=== PATIENT | female | born 1955 | race Caucasian/White ===

== ENCOUNTER 2018-03-14 15:33 | Inpatient (IN) | payer MEDICARE ==
[~2018-03-14] VITALS: Ht 157.5 cm; Wt 74.5 kg
[2018-03-14] MEDS ORDERED: ALBUTEROL/IPRATROPIUM 2.5MG/0.5MG, 3 ML NPPB SCH ×2 (16:00→20:00)
[2018-03-14] MEDS ORDERED: ALBUTEROL/IPRATROPIUM 2.5MG/0.5MG, 3 ML ONE (16:18)
[2018-03-14] MEDS ORDERED: ALBUTEROL 0.5%, 20ML ONE (16:26)
[2018-03-14 16:33] LABS: BASOPHILS # (AUTO) 0.07 x10^3/uL (0-0.1); BASOPHILS % (AUTO) 1 % (0-1); EOSINOPHILS # (AUTO) 1.61 x10^3/uL (0-0.4); EOSINOPHILS % (AUTO) 19 % (1-7); LYMPHOCYTES # (AUTO) 1.84 x10^3/uL (1-3.4); LYMPHOCYTES % (AUTO) 21 % (22-44); MD NO; MEAN CORPUSCULAR HEMOGLOBIN 30.5 pg (27.0-34.8); MEAN CORPUSCULAR HGB CONC 33.9 g/dL (32.4-35.8); MEAN CORPUSCULAR VOLUME 89.9 fL (80-100); MEAN PLATELET VOLUME 8.4 fL (7.4-10.4); MONOCYTES % (AUTO) 8 % (2-9); NEUTROPHILS # (AUTO) 4.45 x10^3/uL (1.8-6.8); NEUTROPHILS % (AUTO) 51 % (42-75); PLATELET COUNT 261 x10^3/uL (130-400); RED BLOOD COUNT 4.89 x10^6/uL (3.82-5.3); RED CELL DISTRIBUTION WIDTH 14.2 % (9.6-15.2)
[2018-03-14 16:45] LABS: ALBUMIN 3.6 g/dL (3.4-5.0); ANION GAP 6 mmol/L (5-15); CALCIUM 8.6 mg/dL (8.5-10.1); CHLORIDE 113 mmol/L (98-107); CREATININE 1.02 mg/dL (0.55-1.02)
[2018-03-14] MEDS ORDERED: ALBUTEROL 0.5%, 20ML NPPBCONT ONE (17:00)
[2018-03-14] MEDS ORDERED: BUDE10.22 INH (17:22)
[2018-03-14] MEDS ORDERED: LORA10TA37 PO (17:22)
[2018-03-14] MEDS ORDERED: ALBU18HF IH (17:22)
[2018-03-14] MEDS ORDERED: MAGNESIUM SULFATE PMX 2GM/50ML 50 ML IVPB ONE (17:30)
[2018-03-14] MEDS ORDERED: SODIUM CHLORIDE 0.9% 1,000ML IVBOLUS ONE (17:30)
[2018-03-14] MEDS ORDERED: methylPREDNISolone SOD SUCC 125 MG/2 ML ONE (18:02)
[2018-03-14] MEDS ORDERED: LIDOCAINE GEL 2%, 5ML ONE (18:27)
[2018-03-14] MEDS ORDERED: PHENYLEPHRINE NASAL 0.5%, 15ML SPRAY ONE (18:27)
[2018-03-14] MEDS ORDERED: LIDOCAINE 4% TOPICAL SOLUTION 50 ML ONE (18:27)
[2018-03-14] MEDS ORDERED: methylPREDNISolone SOD SUCC 125 MG/2 ML IVP ONE (18:30)
[2018-03-14] MEDS ORDERED: morphine SULFATE 10 MG/ML, 1ML IVPush PRN (19:30)
[2018-03-14] MEDS ORDERED: methylPREDNISolone SOD SUCC 125 MG/2 ML IVPush SCH ×2 (19:30→22:00)
[2018-03-14] MEDS ORDERED: DOCUSATE 100 MG CAPSULE PO PRN (19:30)
[2018-03-14] MEDS ORDERED: OXYcodone IR 5MG TABLET PO PRN (19:30)
[2018-03-14] MEDS ORDERED: DOXYCYCLINE 100 MG in DEXTROSE 5% 250 ML IV SCH (19:30)
[2018-03-14] MEDS ORDERED: POLYETHYLENE GLYCOL 17 GM PACKET PO PRN (19:30)
[2018-03-14] MEDS ORDERED: ONDANSETRON ODT 4 MG PO PRN (19:30)
[2018-03-14] MEDS ORDERED: ACETAMINOPHEN 325 MG TABLET PO PRN (19:30)
[2018-03-14] MEDS ORDERED: BISACODYL 10 MG SUPP PR PRN (19:30)
[2018-03-14] MEDS ORDERED: hydrALAzine 20 MG/ML, 1ML IVPush PRN (19:30)
[2018-03-14] MEDS ORDERED: ONDANSETRON 2MG/ML, 2ML IVPush PRN (19:30)
[2018-03-14] MEDS ORDERED: PROMETHAZINE 25 MG/ML, 1ML IM PRN (19:30)
[2018-03-14] MEDS ORDERED: ENOXAPARIN 40 MG/0.4 ML SQ SCH (19:30)
[2018-03-14 19:36] VITALS: BP 143/69
[2018-03-14] MEDS ORDERED: ALBUTEROL/IPRATROPIUM 2.5MG/0.5MG, 3 ML NPPB PRN (20:00)
[2018-03-14] MEDS ORDERED: GUAIFENESIN 200 MG TABLET PO SCH (20:00)
[2018-03-14] MEDS: SODIUM CHLORIDE 0.9% 1,000 ML IV SCH (20:20)
[2018-03-14] MEDS: methylPREDNISolone SOD SUCC 125 MG/2 ML IVPush SCH (20:20)
[2018-03-14] MEDS: HEPARIN 5,000 UNITS/ML, 1ML SQ SCH (20:21)
[2018-03-14] MEDS ORDERED: FAMOTIDINE 20 MG/2 ML IVPush SCH (21:00)
[2018-03-14] MEDS: ALBUTEROL/IPRATROPIUM 2.5MG/0.5MG, 3 ML NPPB SCH (22:52)
[2018-03-14] MEDS ORDERED: ALBUTEROL SULFATE 2.5 MG/3 ML NPPB SCH (23:00)
[2018-03-14 23:09] LABS: MICROSCOPIC NOT IND
[2018-03-14 23:13] LABS: CULTURE INDICATED? NO
[2018-03-15] MEDS: methylPREDNISolone SOD SUCC 125 MG/2 ML IVPush SCH ×4 (01:40→23:56)
[2018-03-15] MEDS: HEPARIN 5,000 UNITS/ML, 1ML SQ SCH ×3 (03:31→21:00)
[2018-03-15] MEDS: ALBUTEROL/IPRATROPIUM 2.5MG/0.5MG, 3 ML NPPB SCH ×7 (03:35→23:30)
[2018-03-15 04:00] VITALS: BP 119/57
[2018-03-15 05:11] LABS: BASOPHILS # (AUTO) 0.02 x10^3/uL (0-0.1); BASOPHILS % (AUTO) 0 % (0-1); EOSINOPHILS # (AUTO) 0.01 x10^3/uL (0-0.4); EOSINOPHILS % (AUTO) 0 % (1-7); LYMPHOCYTES # (AUTO) 0.42 x10^3/uL (1-3.4); LYMPHOCYTES % (AUTO) 7 % (22-44); MD NO; MEAN CORPUSCULAR HEMOGLOBIN 30.6 pg (27.0-34.8); MEAN CORPUSCULAR VOLUME 90.1 fL (80-100); MEAN PLATELET VOLUME 9.1 fL (7.4-10.4); MONOCYTES # (AUTO) 0.04 x10^3/uL (0.2-0.8); MONOCYTES % (AUTO) 1 % (2-9); NEUTROPHILS # (AUTO) 5.72 x10^3/uL (1.8-6.8); NEUTROPHILS % (AUTO) 92 % (42-75); PLATELET COUNT 221 x10^3/uL (130-400); RED BLOOD COUNT 4.25 x10^6/uL (3.82-5.3); RED CELL DISTRIBUTION WIDTH 13.5 % (9.6-15.2)
[2018-03-15 05:13] LABS: CALCIUM 7.7 mg/dL (8.5-10.1); CHLORIDE 111 mmol/L (98-107)
[2018-03-15 05:20] LABS: ALANINE AMINOTRANSFERASE 24 U/L (12-78); ALBUMIN 3.1 g/dL (3.4-5.0); ALKALINE PHOSPHATASE 72 U/L (45-117); ANION GAP 14 mmol/L (5-15); BILIRUBIN,TOTAL 0.3 mg/dL (0.2-1.0); CHOL/HDL RATIO 3.6; CHOLESTEROL, TOTAL 240 mg/dL (140-239); CREATININE 1.42 mg/dL (0.55-1.02); HDL CHOL % 28 % (28-40); HDL CHOLESTEROL (DIRECT) 66 mg/dL (40-60); LDL CHOLESTEROL,CALCULATED 151 mg/dL (54-169); LDL/HDL RATIO 2.3 (0.5-3.0); TOTAL PROTEIN 6.1 g/dL (6.4-8.2); TRIGLYCERIDES 115 mg/dL (50-200); VLDL CHOLESTEROL 23 mg/dL (0-25)
[2018-03-15 06:09] LABS: FREE T4 (FREE THYROXINE) 0.88 ng/dL (0.76-1.46); THYROID STIMULATING HORMONE 0.712 mIU/L (0.358-3.740)
[2018-03-15] MEDS: SODIUM CHLORIDE 0.9% 1,000 ML IV SCH (08:00)
[2018-03-15] MEDS: FLUTICASONE/VILANTEROL 200-25MCG/INH INH SCH ×2 (09:00→12:59)
[2018-03-15] MEDS: AZITHROMYCIN 500 MG TABLET PO SCH (09:50)
[2018-03-15] MEDS: LORATADINE 10 MG TABLET PO SCH (09:50)
[2018-03-15 11:30] VITALS: BP 119/62
[2018-03-15 11:47] VITALS: BP 117/90
[2018-03-15] MEDS ORDERED: ALUMINUM/MAG/SIMETHICONE 30 ML UDC PO PRN (13:00)
[2018-03-15 14:50] VITALS: BP 118/70
[2018-03-15 18:52] VITALS: BP 126/75
[2018-03-16 02:10] VITALS: BP 128/71
[2018-03-16] MEDS: ALBUTEROL/IPRATROPIUM 2.5MG/0.5MG, 3 ML NPPB SCH ×6 (03:00→22:00)
[2018-03-16] MEDS: HEPARIN 5,000 UNITS/ML, 1ML SQ SCH ×3 (06:03→21:00)
[2018-03-16] MEDS: methylPREDNISolone SOD SUCC 125 MG/2 ML IVPush SCH ×3 (06:03→17:56)
[2018-03-16 07:02] VITALS: BP 111/70
[2018-03-16] MEDS: LORATADINE 10 MG TABLET PO SCH (08:27)
[2018-03-16] MEDS: AZITHROMYCIN 500 MG TABLET PO SCH (08:27)
[2018-03-16] MEDS: FLUTICASONE/VILANTEROL 200-25MCG/INH INH SCH (08:28)
[2018-03-16 09:11] LABS: ANION GAP 10 mmol/L (5-15); CALCIUM 8.3 mg/dL (8.5-10.1); CHLORIDE 110 mmol/L (98-107); CREATININE 1.01 mg/dL (0.55-1.02)
[2018-03-16 09:15] LABS: MEAN CORPUSCULAR HEMOGLOBIN 30.1 pg (27.0-34.8); MEAN CORPUSCULAR HGB CONC 33.4 g/dL (32.4-35.8); MEAN CORPUSCULAR VOLUME 90.1 fL (80-100); MEAN PLATELET VOLUME 8.9 fL (7.4-10.4); PLATELET COUNT 238 x10^3/uL (130-400); RED BLOOD COUNT 4.24 x10^6/uL (3.82-5.3)
[2018-03-16 09:33] LABS: BASOPHILS # (AUTO) 0.02 x10^3/uL (0-0.1); BASOPHILS % (AUTO) 0 % (0-1); EOSINOPHILS # (AUTO) 0.04 x10^3/uL (0-0.4); EOSINOPHILS % (AUTO) 0 % (1-7); LYMPHOCYTES # (AUTO) 0.39 x10^3/uL (1-3.4); LYMPHOCYTES % (AUTO) 3 % (22-44); MONOCYTES # (AUTO) 0.25 x10^3/uL (0.2-0.8); MONOCYTES % (AUTO) 2 % (2-9); NEUTROPHILS # (AUTO) 12.83 x10^3/uL (1.8-6.8); NEUTROPHILS % (AUTO) 95 % (42-75)
[2018-03-16 09:34] LABS: MD SCAN
[2018-03-16] MEDS: SODIUM BICARBONATE 4.0%, 5ML NPPB SCH ×3 (11:45→21:00)
[2018-03-16] MEDS: BENZONATATE 100 MG CAPSULE PO SCH ×3 (11:51→21:03)
[2018-03-16 12:37] VITALS: BP 135/76
[2018-03-16 19:04] VITALS: BP 125/83
[2018-03-17] MEDS: methylPREDNISolone SOD SUCC 125 MG/2 ML IVPush SCH ×4 (00:37→18:18)
[2018-03-17 02:44] VITALS: BP 129/77
[2018-03-17] MEDS: HEPARIN 5,000 UNITS/ML, 1ML SQ SCH ×3 (06:04→21:00)
[2018-03-17 07:08] VITALS: BP 127/89
[2018-03-17] MEDS: ALBUTEROL/IPRATROPIUM 2.5MG/0.5MG, 3 ML NPPB SCH ×4 (07:11→23:13)
[2018-03-17] MEDS: SODIUM BICARBONATE 4.0%, 5ML NPPB SCH ×4 (07:13→23:13)
[2018-03-17 08:48] VITALS: BP 123/86
[2018-03-17] MEDS: FLUTICASONE/VILANTEROL 200-25MCG/INH INH SCH (09:00)
[2018-03-17] MEDS ORDERED: MIDAZOLAM 1 MG/ML, 5ML ONE (09:32)
[2018-03-17] MEDS ORDERED: FENTANYL PF 100 MCG/2ML ONE (09:32)
[2018-03-17 11:04] VITALS: BP 122/82
[2018-03-17] MEDS: LORATADINE 10 MG TABLET PO SCH (12:14)
[2018-03-17] MEDS: AZITHROMYCIN 500 MG TABLET PO SCH (12:14)
[2018-03-17] MEDS: BENZONATATE 100 MG CAPSULE PO SCH ×3 (12:14→21:29)
[2018-03-17 12:30] VITALS: BP 136/89
[2018-03-17 19:27] VITALS: BP 168/79
[2018-03-18] MEDS: methylPREDNISolone SOD SUCC 125 MG/2 ML IVPush SCH ×3 (00:04→11:29)
[2018-03-18 02:05] VITALS: BP 114/73
[2018-03-18] MEDS: HEPARIN 5,000 UNITS/ML, 1ML SQ SCH ×2 (05:00→13:00)
[2018-03-18] MEDS: SODIUM BICARBONATE 4.0%, 5ML NPPB SCH ×3 (06:20→13:50)
[2018-03-18] MEDS: ALBUTEROL/IPRATROPIUM 2.5MG/0.5MG, 3 ML NPPB SCH ×3 (06:20→13:50)
[2018-03-18 06:45] VITALS: BP 122/71
[2018-03-18] MEDS: LORATADINE 10 MG TABLET PO SCH (08:23)
[2018-03-18] MEDS: BENZONATATE 100 MG CAPSULE PO SCH ×2 (08:23→16:00)
[2018-03-18] MEDS: AZITHROMYCIN 500 MG TABLET PO SCH (08:23)
[2018-03-18] MEDS: FLUTICASONE/VILANTEROL 200-25MCG/INH INH SCH (08:24)
[2018-03-18 09:26] LABS: ALANINE AMINOTRANSFERASE 29 U/L (12-78); ALBUMIN 3.3 g/dL (3.4-5.0); ANION GAP 10 mmol/L (5-15); CALCIUM 8.9 mg/dL (8.5-10.1); CHLORIDE 105 mmol/L (98-107); CHOLESTEROL, TOTAL 308 mg/dL (140-239); CREATININE 1.02 mg/dL (0.55-1.02)
[2018-03-18 09:28] LABS: ALKALINE PHOSPHATASE 95 U/L (45-117); BILIRUBIN,TOTAL 0.2 mg/dL (0.2-1.0); CHOL/HDL RATIO 3.5; HDL CHOL % 29 % (28-40); HDL CHOLESTEROL (DIRECT) 89 mg/dL (40-60); LDL CHOLESTEROL,CALCULATED 184 mg/dL (54-169); LDL/HDL RATIO 2.1 (0.5-3.0); MD YES; MEAN CORPUSCULAR HEMOGLOBIN 30.4 pg (27.0-34.8); MEAN CORPUSCULAR HGB CONC 34.1 g/dL (32.4-35.8); MEAN CORPUSCULAR VOLUME 89.3 fL (80-100); MEAN PLATELET VOLUME 8.8 fL (7.4-10.4); PLATELET COUNT 247 x10^3/uL (130-400); RED BLOOD COUNT 4.77 x10^6/uL (3.82-5.3); TOTAL PROTEIN 6.4 g/dL (6.4-8.2); TRIGLYCERIDES 177 mg/dL (50-200); VLDL CHOLESTEROL 35 mg/dL (0-25)
[2018-03-18 09:45] LABS: <PLATELET ESTIMATE> ADEQUATE; <PLT MORPHOLOGY> NORMAL PLT MORPH; <RBC MORPHOLOGY> NORMAL; BAND#(MANUAL) 0.32 x10^3/uL; BANDS%(MANUAL) 3 % (0-7); LYMPH#(MANUAL) 0.64 x10^3/uL (1-3.4); LYMPHS% (MANUAL) 6 % (22-44); MONOS#(MANUAL) 0.53 x10^3/uL (0.3-2.7); MONOS% (MANUAL) 5 % (2-9); SEG#(MANUAL) 9.12 x10^3/uL (1.8-6.8); SEGS% (MANUAL) 86 % (42-75)
[2018-03-18 10:08] LABS: HEMOGLOBIN A1C 6.9 % (4.2-6.3)
[2018-03-18 13:28] VITALS: BP 139/83
[2018-03-18] MEDS ORDERED: PRED10TA PO (16:18)
== END 2018-03-18 18:11 | disposition home or self-care (01) | DRG 166 ==
LOC: ED 17:12 → EDIP 17:17 → CCU 19:19 → 3NE 03-15 11:14
PROVIDERS: ADMIT Hospitalist; ATTEND Hospitalist
PROC: 0BC68ZZ Extirpation of Matter from Right Lower Lobe Bronchus, Via Natural or Artificial Opening Endoscopic (ICD-10-PCS; 2018-03-17)
PROC: 0B9F8ZX Drainage of Right Lower Lung Lobe, Via Natural or Artificial Opening Endoscopic, Diagnostic (ICD-10-PCS; principal; 2018-03-17 10:00)
DX: T17.590A Other foreign object in bronchus causing asphyxiation, initial encounter (principal); J96.01 Acute respiratory failure with hypoxia; J45.52 Severe persistent asthma with status asthmaticus; X58.XXXA Exposure to other specified factors, initial encounter; M06.9 Rheumatoid arthritis, unspecified; M41.9 Scoliosis, unspecified; G89.29 Other chronic pain; Z90.710 Acquired absence of both cervix and uterus; Z90.49 Acquired absence of other specified parts of digestive tract; Z88.2 Allergy status to sulfonamides; Z88.1 Allergy status to other antibiotic agents; Z79.899 Other long term (current) drug therapy; Z87.442 Personal history of urinary calculi; Z87.891 Personal history of nicotine dependence; Y93.89 Activity, other specified; Y92.89 Other specified places as the place of occurrence of the external cause
CPT/HCPCS: 31624; 36415; 36600; 70360; 71045; 80048; 80053; 80061; 81003; 82040; 82803; 83036; 83735; 84439; 84443; 85025; 87070; 87077; 87081; 87186; 87205; 93005; 93306; 94640; 96374; 96375; 99152; 99153; 99291; G0378; J1644; J2250; J3010; J7620; J2930; J3475; J7030; J7512; S0028

== ENCOUNTER 2018-06-21 16:45 | Emergency (ER) | payer MEDICARE ==
[~2018-06-21] VITALS: Ht 160 cm; Wt 70.0 kg
[~2018-06-21 16:45] MED LIST: ALBU18HF IH; BUDE10.22 INH; LORA10TA37 PO; PRED10TA PO
[2018-06-21 17:24] LABS: MEAN CORPUSCULAR HEMOGLOBIN 30.3 pg (27.0-34.8); MEAN CORPUSCULAR HGB CONC 33.4 g/dL (32.4-35.8); MEAN CORPUSCULAR VOLUME 90.6 fL (80-100); MEAN PLATELET VOLUME 8.3 fL (7.4-10.4); PLATELET COUNT 296 x10^3/uL (130-400); RED CELL DISTRIBUTION WIDTH 13.1 % (9.6-15.2)
[2018-06-21] MEDS ORDERED: SODIUM CHLORIDE FLUSH 10ML SYR IVF ONE (17:30)
[2018-06-21] MEDS ORDERED: SODIUM CHLORIDE 0.9% 1,000ML IVBOLUS ONE (17:30)
[2018-06-21 17:33] LABS: ALANINE AMINOTRANSFERASE 23 U/L (12-78); ALBUMIN 3.6 g/dL (3.4-5.0); ANION GAP 8 mmol/L (5-15); CALCIUM 9.5 mg/dL (8.5-10.1); CHLORIDE 108 mmol/L (98-107); CREATININE 1.05 mg/dL (0.55-1.02)
[2018-06-21 17:42] LABS: BASOPHILS # (AUTO) 0.11 x10^3/uL (0-0.1); BASOPHILS % (AUTO) 1 % (0-1); EOSINOPHILS # (AUTO) 1.76 x10^3/uL (0-0.4); EOSINOPHILS % (AUTO) 17 % (1-7); LYMPHOCYTES # (AUTO) 1.71 x10^3/uL (1-3.4); LYMPHOCYTES % (AUTO) 17 % (22-44); MD SCAN; MONOCYTES # (AUTO) 0.55 x10^3/uL (0.2-0.8); MONOCYTES % (AUTO) 5 % (2-9); NEUTROPHILS # (AUTO) 6.12 x10^3/uL (1.8-6.8); NEUTROPHILS % (AUTO) 60 % (42-75)
[2018-06-21 17:43] LABS: ALKALINE PHOSPHATASE 94 U/L (45-117); BILIRUBIN,TOTAL 0.3 mg/dL (0.2-1.0); TOTAL PROTEIN 7.1 g/dL (6.4-8.2)
[2018-06-21 18:27] LABS: TROPONIN I < 0.015 ng/mL (0.000-0.045)
[2018-06-21] MEDS ORDERED: SODIUM CHLORIDE 0.9%, 500ML IVBOLUS ONE (18:30)
[2018-06-21] MEDS ORDERED: ONDANSETRON 2MG/ML, 2ML ONE (18:41)
[2018-06-21 18:45] VITALS: BP 135/76
[2018-06-21 18:55] LABS: MICROSCOPIC NOT IND
[2018-06-21 18:58] LABS: CULTURE INDICATED? NO
[2018-06-21] MEDS ORDERED: ONDANSETRON 2MG/ML, 2ML IVPush ONE (19:00)
[2018-06-22] MEDS ORDERED: TRAM50TA2 PO (15:19)
== END 2018-06-21 19:54 | disposition home or self-care (01) ==
LOC: ED 17:08
DX: E86.0 Dehydration (principal); R05 Cough; J45.909 Unspecified asthma, uncomplicated; M41.9 Scoliosis, unspecified; Z90.49 Acquired absence of other specified parts of digestive tract; Z90.710 Acquired absence of both cervix and uterus; Z87.891 Personal history of nicotine dependence
CPT/HCPCS: 36415; 71045; 80053; 81003; 83735; 84443; 84484; 85025; 93005; 96361; 96374; 99284; J2405; J7030; J7040

== ENCOUNTER 2018-06-22 13:20 | Observation (INO) | payer MEDICARE ==
[~2018-06-22] VITALS: Ht 157.5 cm; Wt 74.9 kg
[2018-06-22] MEDS ORDERED: MORPHINE SULFATE 4 MG/ML, 1ML ONE (13:55)
[2018-06-22] MEDS ORDERED: ONDANSETRON 2MG/ML, 2ML ONE (13:55)
[2018-06-22] MEDS ORDERED: SODIUM CHLORIDE FLUSH 10ML SYR IVF ONE (14:00)
[2018-06-22] MEDS ORDERED: MORPHINE SULFATE 4 MG/ML, 1ML IVPush PRN (14:00)
[2018-06-22] MEDS ORDERED: ONDANSETRON 2MG/ML, 2ML IVPush ONE (14:00)
[2018-06-22 14:26] LABS: ALBUMIN 3.2 g/dL (3.4-5.0); ANION GAP 8 mmol/L (5-15); CALCIUM 8.9 mg/dL (8.5-10.1); CHLORIDE 113 mmol/L (98-107)
[2018-06-22 14:27] LABS: CREATININE 0.85 mg/dL (0.55-1.02)
[2018-06-22] MEDS ORDERED: METOCLOPRAMIDE 5 MG/ML, 2ML IVPush ONE (14:30)
[2018-06-22] MEDS ORDERED: SODIUM CHLORIDE 0.9% 1,000ML IVBOLUS ONE (14:30)
[2018-06-22] MEDS ORDERED: DIPHENHYDRAMINE 50 MG/ML, 1ML IVPush ONE (14:30)
[2018-06-22 14:34] LABS: BASOPHILS # (AUTO) 0.05 x10^3/uL (0-0.1); BASOPHILS % (AUTO) 1 % (0-1); EOSINOPHILS # (AUTO) 1.61 x10^3/uL (0-0.4); EOSINOPHILS % (AUTO) 24 % (1-7); LYMPHOCYTES # (AUTO) 1.79 x10^3/uL (1-3.4); LYMPHOCYTES % (AUTO) 26 % (22-44); MD NO; MEAN CORPUSCULAR HEMOGLOBIN 29.8 pg (27.0-34.8); MEAN CORPUSCULAR HGB CONC 33.5 g/dL (32.4-35.8); MEAN CORPUSCULAR VOLUME 89.1 fL (80-100); MEAN PLATELET VOLUME 8.2 fL (7.4-10.4); MONOCYTES # (AUTO) 0.47 x10^3/uL (0.2-0.8); MONOCYTES % (AUTO) 7 % (2-9); NEUTROPHILS # (AUTO) 2.92 x10^3/uL (1.8-6.8); NEUTROPHILS % (AUTO) 43 % (42-75); PLATELET COUNT 273 x10^3/uL (130-400); RED BLOOD COUNT 4.82 x10^6/uL (3.82-5.3); RED CELL DISTRIBUTION WIDTH 12.8 % (9.6-15.2)
[2018-06-22] MEDS ORDERED: METOCLOPRAMIDE 5 MG/ML, 2ML ONE (14:39)
[2018-06-22] MEDS ORDERED: DIPHENHYDRAMINE 50 MG/ML, 1ML ONE (14:39)
[2018-06-22] MEDS ORDERED: TRAM50TA2 PO (15:19)
[2018-06-22] MEDS ORDERED: DEXAMETHASONE 4 MG/ML, 1ML ONE (16:58)
[2018-06-22] MEDS ORDERED: HYDROmorphone 2 MG/ML, 1ML ONE (16:59)
[2018-06-22] MEDS ORDERED: HYDROmorphone 1 MG/ML, 1ML IV ONE (17:00)
[2018-06-22] MEDS ORDERED: DEXAMETHASONE 4 MG/ML, 1ML IVPush ONE (17:00)
[2018-06-22] MEDS ORDERED: MIDAZOLAM 1 MG/ML, 2ML ONE (17:18)
[2018-06-22] MEDS ORDERED: LIDOCAINE-MPF 1%, 5ML ONE ×2 (17:22→17:52)
[2018-06-22] MEDS ORDERED: MIDAZOLAM 1 MG/ML, 2ML IVPush ONE (17:30)
[2018-06-22] MEDS: MIDAZOLAM MC SCH (17:30)
[2018-06-22 19:14] LABS: GLUCOSE, CSF 58 mg/dL (40-80); TOTAL PROTEIN,CSF 61 mg/dL (15-45)
[2018-06-22] MEDS ORDERED: SUMATRIPTAN 25 MG TABLET PO PRN (20:00)
[2018-06-22] MEDS ORDERED: POLYETHYLENE GLYCOL 17 GM PACKET PO PRN (20:00)
[2018-06-22] MEDS ORDERED: ONDANSETRON ODT 4 MG PO PRN (20:00)
[2018-06-22] MEDS ORDERED: BISACODYL 10 MG SUPP PR PRN (20:00)
[2018-06-22] MEDS: SODIUM CHLORIDE 0.45% 1,000 ML IV SCH (22:14)
[2018-06-22] MEDS ORDERED: ALBUTEROL SULFATE 2.5 MG/3 ML ONE (22:39)
[2018-06-22] MEDS ORDERED: ALBUTEROL SULFATE 2.5 MG/3 ML NPPB PRN (23:30)
[2018-06-23 01:51] VITALS: BP 109/68
[2018-06-23 04:34] LABS: BASOPHILS # (AUTO) 0.01 x10^3/uL (0-0.1); BASOPHILS % (AUTO) 0 % (0-1); EOSINOPHILS % (AUTO) 0 % (1-7); LYMPHOCYTES % (AUTO) 11 % (22-44); MD NO; MEAN CORPUSCULAR HGB CONC 33.7 g/dL (32.4-35.8); MEAN PLATELET VOLUME 8.4 fL (7.4-10.4); MONOCYTES # (AUTO) 0.07 x10^3/uL (0.2-0.8); MONOCYTES % (AUTO) 1 % (2-9); NEUTROPHILS # (AUTO) 5.04 x10^3/uL (1.8-6.8); NEUTROPHILS % (AUTO) 88 % (42-75); PLATELET COUNT 269 x10^3/uL (130-400); RED BLOOD COUNT 4.67 x10^6/uL (3.82-5.3); RED CELL DISTRIBUTION WIDTH 12.5 % (9.6-15.2)
[2018-06-23 04:47] LABS: ANION GAP 6 mmol/L (5-15); CALCIUM 8.3 mg/dL (8.5-10.1); CHLORIDE 109 mmol/L (98-107)
[2018-06-23 04:52] LABS: ALANINE AMINOTRANSFERASE 27 U/L (12-78); ALKALINE PHOSPHATASE 73 U/L (45-117); BILIRUBIN,TOTAL 0.2 mg/dL (0.2-1.0); CREATININE 0.93 mg/dL (0.55-1.02)
[2018-06-23 07:30] VITALS: BP 94/59
[2018-06-23] MEDS: MIDAZOLAM MC SCH (07:54)
[2018-06-23] MEDS ORDERED: DIPHENHYDRAMINE 25 MG CAPSULE ONE (07:57)
[2018-06-23] MEDS ORDERED: DIPHENHYDRAMINE 25 MG CAPSULE PO ONE (08:00)
[2018-06-23] MEDS: SODIUM CHLORIDE 0.45% 1,000 ML IV SCH ×2 (08:04→20:22)
[2018-06-23] MEDS ORDERED: GADOBUTROL 7.5 MMOL/7.5 ML PFS ONE (08:51)
[2018-06-23] MEDS ORDERED: LORATADINE 10 MG TABLET PO SCH (09:00)
[2018-06-23] MEDS: BUDESONIDE 0.5 MG/2 ML INHA NPPB SCH ×2 (09:00→19:30)
[2018-06-23] MEDS: SENNA/DOCUSATE TABLET PO SCH (09:00)
[2018-06-23 20:16] VITALS: BP 119/74
[2018-06-24 03:39] VITALS: BP 98/64
[2018-06-24] MEDS: SODIUM CHLORIDE 0.45% 1,000 ML IV SCH (06:31)
[2018-06-24 07:30] VITALS: BP 138/76
[2018-06-24] MEDS: BUDESONIDE 0.5 MG/2 ML INHA NPPB SCH (07:44)
[2018-06-24] MEDS: SENNA/DOCUSATE TABLET PO SCH (08:43)
[2018-06-24] MEDS ORDERED: LORATADINE 10 MG TABLET PO SCH (09:00)
[2018-06-24] MEDS ORDERED: CYCL5TAB PO (10:27)
[2018-06-24] MEDS ORDERED: ERGO1TAB PO (10:27)
[2018-06-24] MEDS ORDERED: VALA1000 PO (10:27)
[2018-06-24] MEDS ORDERED: DIPHENHYDRAMINE 50 MG/ML, 1ML IVPush ONE (11:30)
== END 2018-06-24 13:15 | disposition home or self-care (01) ==
LOC: ED 15:39 → INTOOBSV 17:45 → EDIP 17:45 → 3NW 19:12 → DCLOUNGE 06-24 13:01
PROVIDERS: ADMIT Family Medicine; ATTEND Family Medicine
DX: R51 Headache (principal); J45.909 Unspecified asthma, uncomplicated; M06.9 Rheumatoid arthritis, unspecified; M41.9 Scoliosis, unspecified; R00.0 Tachycardia, unspecified; E87.1 Hypo-osmolality and hyponatremia; Z80.0 Family history of malignant neoplasm of digestive organs; Z87.891 Personal history of nicotine dependence; Z90.710 Acquired absence of both cervix and uterus
CPT/HCPCS: 36415; 62270; 70450; 70553; 80048; 80053; 82040; 82945; 83605; 84157; 85025; 87040; 87070; 87205; 87252; 89051; 94640; 96374; 96375; 96376; 99284; A9585; G0378; J1100; J1170; J1200; J2405; J2765; J7030; J7613; J7626; Q0162; Q0163; 99285

== ENCOUNTER 2018-10-14 20:22 | Observation (INO) | payer MEDICARE ==
[~2018-10-14] VITALS: Ht 157.5 cm; Wt 75.6 kg
[~2018-10-14 20:22] MED LIST changes: +CYCL5TAB PO; +ERGO1TAB PO; +TRAM50TA2 PO; +VALA1000 PO
[2018-10-14] MEDS ORDERED: ALBUTEROL/IPRATROPIUM 2.5MG/0.5MG, 3 ML NPPB ONE (21:00)
--- NOTE | 2018-10-14 21:10 | NUR ---
CONTINUOUS IMPROVEMENT COORDINATOR: PT WALKED BACK FROM LOBBY TO ROOM AT THIS TIME.
--- NOTE | 2018-10-14 21:19 | NUR ---
First contact w/ pt. Presents c/o hx of asthma w/ visit to urgent care today and given 125 mg solu-medrol im and 2 duoneb tx for acute sob. Pt has moderate expiratory wheezes and "coughing fits" intermittently in the room that bring the resting hr from 108 to 120-130 range, then back down after pt stops coughing. Pt sat 98% RA, but put on 2L NC for pt comfort. Pt bp elevated. MD aware. Monitoring applied. VSS. Call light within reach. Spouse at bedside.
[2018-10-14] MEDS ORDERED: MAGNESIUM SULFATE PMX 2GM/50ML 50 ML IV ONE (21:30)
[2018-10-14] MEDS ORDERED: SODIUM CHLORIDE FLUSH 10ML SYR IVF ONE (21:30)
[2018-10-14] MEDS ORDERED: ALBUTEROL 0.5%, 20ML NPPB SCH (21:30)
[2018-10-14] MEDS ORDERED: AZITHROMYCIN 500 MG in SODIUM CHLORIDE 0.9% 250 ML IVPB ONE (21:30)
[2018-10-14] MEDS ORDERED: MAGNESIUM SULFATE PMX 2GM/50ML 50 ML ONE (21:35)
[2018-10-14] MEDS ORDERED: ALBUTEROL/IPRATROPIUM 2.5MG/0.5MG, 3 ML ONE ×2 (21:36→21:38)
--- NOTE | 2018-10-14 22:02 | NUR ---
Awaiting blood cultures for abx admin.
--- NOTE | 2018-10-14 22:03 | NUR ---
This RN called Raulito in rx. Raulito states ok to run zithromax and magnesium through same IV.
[2018-10-14 22:25] LABS: BASOPHILS # (AUTO) 0.05 x10^3/uL (0-0.1); BASOPHILS % (AUTO) 1 % (0-1); EOSINOPHILS # (AUTO) 0.38 x10^3/uL (0-0.4); EOSINOPHILS % (AUTO) 5 % (1-7); LYMPHOCYTES # (AUTO) 0.59 x10^3/uL (1-3.4); LYMPHOCYTES % (AUTO) 7 % (22-44); MD NO; MEAN CORPUSCULAR HEMOGLOBIN 29.3 pg (27.0-34.8); MEAN CORPUSCULAR HGB CONC 33.5 g/dL (32.4-35.8); MEAN CORPUSCULAR VOLUME 87.4 fL (80-100); MEAN PLATELET VOLUME 8.8 fL (7.4-10.4); MONOCYTES % (AUTO) 1 % (2-9); NEUTROPHILS # (AUTO) 7.29 x10^3/uL (1.8-6.8); NEUTROPHILS % (AUTO) 87 % (42-75); PLATELET COUNT 274 x10^3/uL (130-400); RED BLOOD COUNT 4.92 x10^6/uL (3.82-5.3); RED CELL DISTRIBUTION WIDTH 14.7 % (9.6-15.2)
[2018-10-14 22:26] LABS: RAPID INFLUENZA A Negative (Negative); RAPID INFLUENZA B Negative (Negative)
[2018-10-14 22:34] LABS: ALBUMIN 3.8 g/dL (3.4-5.0); ANION GAP 6 mmol/L (5-15); CALCIUM 9.2 mg/dL (8.5-10.1); CHLORIDE 111 mmol/L (98-107); CREATININE 1.13 mg/dL (0.55-1.02)
[2018-10-14 22:38] LABS: TROPONIN I < 0.015 ng/mL (0.000-0.045)
--- NOTE | 2018-10-14 22:45 | NUR ---
Iv's infusing appropriately. Pt wob improving and states she is feeling much better. Call light within reach. Family at bedside.
--- NOTE | 2018-10-15 00:09 | NUR ---
Pt maintaining O2 sats above 90% on RA. aware. Awaiting adm order. No immediate needs from pt or family. Call light within reach.
[2018-10-15] MEDS ORDERED: BENZONATATE 100 MG CAPSULE ONE (00:28)
[2018-10-15] MEDS ORDERED: BENZONATATE 100 MG CAPSULE PO ONE (00:30)
[2018-10-15 01:04] VITALS: BP 119/71
[2018-10-15] MEDS ORDERED: BUDE180A INH (01:23)
[2018-10-15] MEDS ORDERED: FLUT16SP NAS (01:25)
[2018-10-15] MEDS ORDERED: LEVO50TA PO (01:26)
[2018-10-15] MEDS ORDERED: ALBUTEROL/IPRATROPIUM 2.5MG/0.5MG, 3 ML HHN PRN (01:30)
[2018-10-15] MEDS ORDERED: hydrALAzine 20 MG/ML, 1ML IVPush PRN (01:30)
[2018-10-15] MEDS: ALBUTEROL SULFATE 2.5 MG/3 ML NPPB SCH ×6 (05:02→22:57)
[2018-10-15] MEDS: LEVOTHYROXINE 50 MCG TABLET PO SCH (05:13)
[2018-10-15] MEDS ORDERED: ALBUTEROL 0.5%, 20ML NPPB SCH (06:00)
[2018-10-15] MEDS: BUDESONIDE 0.5 MG/2 ML INHA NPPB SCH ×2 (07:40→19:23)
[2018-10-15 08:51] VITALS: BP 109/69
[2018-10-15] MEDS ORDERED: LORATADINE 10 MG TABLET PO SCH (09:00)
[2018-10-15] MEDS ORDERED: LORATADINE 10 MG TABLET ONE (10:18)
[2018-10-15] MEDS: methylPREDNISolone SOD SUCC 40 MG/ML IV SCH ×3 (10:30→21:57)
[2018-10-15] MEDS: LORATADINE 10 MG TABLET PO SCH (10:34)
[2018-10-15 14:29] VITALS: BP 100/56
[2018-10-15 21:00] VITALS: BP 103/56
[2018-10-15] MEDS ORDERED: methylPREDNISolone SOD SUCC 125 MG/2 ML ONE (21:30)
[2018-10-15] MEDS: AZITHROMYCIN 500 MG in SODIUM CHLORIDE 0.9% 250 ML IV SCH (21:44)
[2018-10-16] MEDS: AZITHROMYCIN 500 MG in SODIUM CHLORIDE 0.9% 250 ML IV SCH (02:27)
[2018-10-16] MEDS: methylPREDNISolone SOD SUCC 40 MG/ML IV SCH ×2 (02:27→10:15)
[2018-10-16 02:30] VITALS: BP 122/67
[2018-10-16 05:42] LABS: ANION GAP 7 mmol/L (5-15); CALCIUM 8.8 mg/dL (8.5-10.1); CHLORIDE 113 mmol/L (98-107); CREATININE 1.04 mg/dL (0.55-1.02)
[2018-10-16] MEDS: LEVOTHYROXINE 50 MCG TABLET PO SCH (06:47)
[2018-10-16 07:28] LABS: BASOPHILS % (AUTO) 0 % (0-1); EOSINOPHILS % (AUTO) 0 % (1-7); LYMPHOCYTES # (AUTO) 0.51 x10^3/uL (1-3.4); LYMPHOCYTES % (AUTO) 5 % (22-44); MD SCAN; MEAN CORPUSCULAR HEMOGLOBIN 29.2 pg (27.0-34.8); MEAN CORPUSCULAR HGB CONC 32.9 g/dL (32.4-35.8); MEAN CORPUSCULAR VOLUME 88.7 fL (80-100); MEAN PLATELET VOLUME 8.9 fL (7.4-10.4); MONOCYTES # (AUTO) 0.38 x10^3/uL (0.2-0.8); MONOCYTES % (AUTO) 4 % (2-9); NEUTROPHILS # (AUTO) 10.23 x10^3/uL (1.8-6.8); NEUTROPHILS % (AUTO) 92 % (42-75); PLATELET COUNT 256 x10^3/uL (130-400); RED CELL DISTRIBUTION WIDTH 14.4 % (9.6-15.2)
[2018-10-16] MEDS: ALBUTEROL SULFATE 2.5 MG/3 ML NPPB SCH ×2 (08:08→10:45)
[2018-10-16] MEDS: BUDESONIDE 0.5 MG/2 ML INHA NPPB SCH (08:08)
[2018-10-16 08:37] VITALS: BP 92/54
[2018-10-16] MEDS ORDERED: LORATADINE 10 MG TABLET PO SCH (09:00)
[2018-10-16] MEDS: LORATADINE 10 MG TABLET PO SCH (09:23)
[2018-10-16] MEDS ORDERED: METH4TAB2 PO (12:12)
[2018-10-16 13:06] VITALS: BP 130/72
== END 2018-10-16 15:50 | disposition home or self-care (01) ==
LOC: ED 22:50 → INTOOBSV 10-15 00:27 → EDIP 10-15 00:27 → 4EST 10-15 01:32 → DCLOUNGE 10-16 15:10
PROVIDERS: ADMIT Internal Medicine; ATTEND Internal Medicine
DX: J44.1 Chronic obstructive pulmonary disease with (acute) exacerbation (principal); M06.9 Rheumatoid arthritis, unspecified; E03.9 Hypothyroidism, unspecified; M41.9 Scoliosis, unspecified; E11.9 Type 2 diabetes mellitus without complications; J96.00 Acute respiratory failure, unspecified whether with hypoxia or hypercapnia; N17.9 Acute kidney failure, unspecified; Z80.0 Family history of malignant neoplasm of digestive organs; Z87.891 Personal history of nicotine dependence; Z90.710 Acquired absence of both cervix and uterus
CPT/HCPCS: 36415; 71046; 80048; 82040; 83880; 84484; 85025; 87040; 87400; 93005; 94640; 94644; 96365; 96366; 96368; 96375; 96376; 99284; G0378; J0456; J2920; J3475; J7050; J7613; J7620; J7626

== ENCOUNTER → 2018-11-10 | Outpatient (CLI) | payer MEDICARE ==
[~2018-11-10] MED LIST changes: +BUDE180A INH; +FLUT16SP NAS; +LEVO50TA PO; +METH4TAB2 PO
== END | disposition home or self-care (01) ==
LOC: CFH 14:20
PROVIDERS: ATTEND Nurse Practitioner Family
DX: J45.909 Unspecified asthma, uncomplicated (principal)
CPT/HCPCS: 71250

== ENCOUNTER 2018-11-19 21:34 | Emergency (ER) | payer MEDICARE ==
[~2018-11-19] VITALS: Ht 160 cm; Wt 72.7 kg
[2018-11-19] MEDS ORDERED: methylPREDNISolone SOD SUCC 125 MG/2 ML ONE (22:24)
[2018-11-19] MEDS ORDERED: methylPREDNISolone SOD SUCC 125 MG/2 ML IVPush SCH (22:30)
[2018-11-19] MEDS ORDERED: ALBUTEROL SULFATE 2.5 MG/3 ML NPPB SCH (22:30)
[2018-11-19] MEDS ORDERED: SODIUM CHLORIDE FLUSH 10ML SYR IVF ONE (22:30)
[2018-11-19] MEDS ORDERED: methylPREDNISolone SOD SUCC 125 MG/2 ML IVPush ONE (22:30)
[2018-11-19] MEDS ORDERED: ALBUTEROL SULFATE 2.5 MG/3 ML ONE (22:32)
--- NOTE | 2018-11-19 22:40 | NUR ---
ASSUMED CARE OF PATIENT. PATIENT HAS ASTHMA AND HAS BEEN USING HER INHALER/NEB TODAY. 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 SINUS TACH NOTED. VS STABLE. FAMILY AT BEDSIDE. CALL LIGHT IN PLACE. WILL CONTINUE TO MONITOR.
[2018-11-19 22:43] LABS: BASOPHILS # (AUTO) 0.01 x10^3/uL (0-0.1); BASOPHILS % (AUTO) 0 % (0-1); EOSINOPHILS # (AUTO) 0.11 x10^3/uL (0-0.4); EOSINOPHILS % (AUTO) 1 % (1-7); LYMPHOCYTES # (AUTO) 1.17 x10^3/uL (1-3.4); LYMPHOCYTES % (AUTO) 15 % (22-44); MD NO; MEAN CORPUSCULAR HEMOGLOBIN 30.2 pg (27.0-34.8); MEAN CORPUSCULAR VOLUME 88.7 fL (80-100); MEAN PLATELET VOLUME 8.1 fL (7.4-10.4); MONOCYTES # (AUTO) 0.82 x10^3/uL (0.2-0.8); MONOCYTES % (AUTO) 11 % (2-9); NEUTROPHILS # (AUTO) 5.74 x10^3/uL (1.8-6.8); NEUTROPHILS % (AUTO) 73 % (42-75); PLATELET COUNT 243 x10^3/uL (130-400); RED CELL DISTRIBUTION WIDTH 14.1 % (9.6-15.2)
[2018-11-19 22:56] LABS: ALANINE AMINOTRANSFERASE 27 U/L (12-78); ALBUMIN 3.4 g/dL (3.4-5.0); ANION GAP 10 mmol/L (5-15); CALCIUM 8.8 mg/dL (8.5-10.1); CHLORIDE 107 mmol/L (98-107)
[2018-11-19 23:01] LABS: ALKALINE PHOSPHATASE 98 U/L (45-117); BILIRUBIN,TOTAL 0.2 mg/dL (0.2-1.0); TOTAL PROTEIN 6.6 g/dL (6.4-8.2); TROPONIN I < 0.015 ng/mL (0.000-0.045)
[2018-11-19] MEDS ORDERED: FLUT12AE2 INH (23:13)
[2018-11-19] MEDS ORDERED: METF750T2 PO (23:14)
[2018-11-19] MEDS ORDERED: XOPENEX (23:15)
--- NOTE | 2018-11-19 23:20 | NUR ---
LAB TO DRAW D-DIMER
[2018-11-19] MEDS ORDERED: ACETAMINOPHEN 325 MG TABLET ONE (23:28)
[2018-11-19] MEDS ORDERED: ACETAMINOPHEN 325 MG TABLET PO ONE (23:30)
[2018-11-20] MEDS ORDERED: DIPHENHYDRAMINE 50 MG/ML, 1ML IVPush ONE
--- NOTE | 2018-11-20 00:03 | NUR ---
PT RESTING IN ROOM. NO ACUTE DISTRESS NOTED. VS STABLE. 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 SINUS TACH NOTED. CALL LIGHT IN PLACE. WILL CONTINUE TO MONITOR.
[2018-11-20] MEDS ORDERED: DIPHENHYDRAMINE 50 MG/ML, 1ML ONE (00:06)
[2018-11-20] MEDS ORDERED: OMNIPAQUE 350 MG/ML, 100ML BOTTLE ONE (00:21)
--- NOTE | 2018-11-20 00:26 | NUR ---
PT IN CT
[2018-11-20] MEDS ORDERED: SODIUM CHLORIDE 0.9% 1,000 ML IV ONE (01:00)
[2018-11-20 01:49] VITALS: BP 110/69
--- NOTE | 2018-11-20 01:51 | NUR ---
DR RIVAS WANTED PATIENT TO STAY FOR ADMISSION PT REFUSED. PT WANTED TO GO HOME. PT UNDERSTANDS DISCHARGE INSTRUCTIONS. PT DISCHARGED PER DR RIVAS
== END 2018-11-20 01:54 | disposition home or self-care (01) ==
LOC: ED 22:34
DX: J45.51 Severe persistent asthma with (acute) exacerbation (principal); E03.9 Hypothyroidism, unspecified; E11.9 Type 2 diabetes mellitus without complications; M06.9 Rheumatoid arthritis, unspecified; Z90.49 Acquired absence of other specified parts of digestive tract; Z90.710 Acquired absence of both cervix and uterus
CPT/HCPCS: 36415; 71045; 71275; 80053; 83880; 84443; 84484; 85025; 85379; 93005; 96374; 96375; 99284; J1200; J2930; J7030; Q9967

== ENCOUNTER → 2018-12-09 | Outpatient (CLI) | payer MEDICARE ==
[~2018-12-09] MED LIST changes: +FLUT12AE2 INH; +METF750T2 PO; +XOPENEX
== END | disposition home or self-care (01) ==
LOC: CFH 09:03
PROVIDERS: ATTEND Nurse Practitioner Family
DX: J32.0 Chronic maxillary sinusitis (principal)
CPT/HCPCS: 70486

== ENCOUNTER → 2019-06-28 | Outpatient (CLI) | payer MEDICARE ==
[~2019-06-28] MED LIST changes: -FLUT16SP NAS; +FLUT16SP24 NAS; -METF750T2 PO; +METF750T42 PO
== END | disposition home or self-care (01) ==
LOC: CFH 11:37
PROVIDERS: ATTEND Internal Medicine Nephrology
DX: N18.3 Chronic kidney disease, stage 3 (moderate) (principal); N20.0 Calculus of kidney
CPT/HCPCS: 74176